=== PATIENT | female | born 1975 | race Caucasian/White ===

== ENCOUNTER 2018-11-18 09:12 | Emergency (ER) | payer OTHER ==
[~2018-11-18] VITALS: Ht 165.1 cm; Wt 89.1 kg
[2018-11-18 09:19] VITALS: Ht 165.1 cm; Wt 89.1 kg
[2018-11-18 10:07] LABS: BASOPHIL % 0.4 % (0-2); PLATELET COUNT 384 x10^3mcL (130-400); RED CELL DISTRIBUTION WIDTH 14.5 % (11.5-14.5)
[2018-11-18 10:27] LABS: CALCIUM 9.4 mg/dL (8.5-10.1); CARBON DIOXIDE 24.1 mmol/L (21-32); CREATININE SERUM 1.1 mg/dL (0.6-1.0); POTASSIUM SERUM 4.6 mmol/L (3.5-5.1)
[2018-11-18 10:31] LABS: ALBUMIN 3.5 g/dL (3.4-5.0); BILIRUBIN TOTAL 0.5 mg/dL (0.20-1.00)
[2018-11-18 10:40] LABS: TOTAL PROTEIN, SERUM 8.6 g/dL (6.4-8.2)
[2018-11-18 12:01] VITALS: BP 165/104
== END 2018-11-18 12:01 | disposition home or self-care (01) ==
LOC: ED 09:12
PROVIDERS: Emergency Medicine
DX: K29.70 Gastritis, unspecified, without bleeding (principal); L03.039 Cellulitis of unspecified toe
CPT/HCPCS: 82962; J2270; J2405; J7030; Q0092

== ENCOUNTER 2019-07-18 05:48 | Emergency (ER) | payer MEDICAID ==
[2019-07-18 05:58] VITALS: BP 147/100; Ht 165.1 cm
== END 2019-07-18 07:01 | disposition home or self-care (01) ==
LOC: ED 05:48
DX: L03.115 Cellulitis of right lower limb (principal); I10 Essential (primary) hypertension; E11.9 Type 2 diabetes mellitus without complications
CPT/HCPCS: J1885

== ENCOUNTER 2020-05-02 17:12 | Emergency (ER) | payer OTHER, SELFPAY ==
[~2020-05-02] VITALS: Ht 165.1 cm; Wt 84.4 kg
[~2020-05-02 17:12] MED LIST: AMLODIPINE BESY10 M2 PO; AUG500 PO; IBU800 M2 PO; JANUVIA100 M1 PO; LIPI10 PO; METFORMIN HCL1000 M2 PO; METOCLOPRAMIDE H5 M1 PO; PRILOSEC OTC20 M1 PO; TYLENOL WITH CO1 TA2 PO; ZESTRIL20 MG PO
[2020-05-02 17:13] VITALS: Ht 165.1 cm; Wt 84.4 kg
[2020-05-02 18:45] LABS: BASOPHIL % 0.5 % (0.2-1.3)
[2020-05-02 18:48] LABS: PLATELET COUNT 444 x10^3mcL (179-408); RED CELL DISTRIBUTION WIDTH 17.1 % (12.3-17.7)
[2020-05-02 18:50] LABS: rbc morphology (normal/abnorm) NORMAL (NORMAL)
[2020-05-02 18:55] LABS: CALCIUM 10.2 mg/dL (8.5-10.1); CARBON DIOXIDE 25.1 mmol/L (21-32); CREATININE SERUM 1.2 mg/dL (0.6-1.0); POTASSIUM SERUM 3.6 mmol/L (3.5-5.1)
[2020-05-02 19:00] LABS: BILIRUBIN TOTAL 0.7 mg/dL (0.20-1.00); TOTAL PROTEIN, SERUM 9.7 g/dL (6.4-8.2)
[2020-05-02 19:59] LABS: UA SPECIFIC GRAVITY 1.025 (1.005-1.035); microscopic required? YES; urine erythrocyte 3+ (NEGATIVE)
[2020-05-03 04:07] VITALS: BP 157/99
== END 2020-05-02 23:45 | disposition home or self-care (01) ==
LOC: ED 17:12
PROVIDERS: Emergency Medicine
DX: L02.211 Cutaneous abscess of abdominal wall (principal); I10 Essential (primary) hypertension; E11.9 Type 2 diabetes mellitus without complications; E78.00 Pure hypercholesterolemia, unspecified; Z98.890 Other specified postprocedural states; Z20.828 Contact with and (suspected) exposure to other viral communicable diseases
CPT/HCPCS: J2405; J2765; J7030; U0003

== ENCOUNTER 2020-06-11 07:28 | Emergency (ER) | payer OTHER ==
[~2020-06-11] VITALS: Ht 165.1 cm; Wt 72.6 kg
[~2020-06-11 07:28] MED LIST changes: +FLONS INH; +INSULIN SYRING1 EA29 SQ; +KEFLEX500 M1 PO; +LANTI SQ; +METFORMIN850 M1 PO; +SINGLE USE SWA1 EACH TOP; +ZYR10 PO
[2020-06-11 07:38] VITALS: Ht 165.1 cm; Wt 72.6 kg
[2020-06-11 09:14] LABS: BASOPHIL % 0.8 % (0.2-1.3); PLATELET COUNT 177 x10^3mcL (179-408)
[2020-06-11 09:40] LABS: CALCIUM 8.7 mg/dL (8.5-10.1); CARBON DIOXIDE 26.5 mmol/L (21-32); CHLORIDE SERUM 98 mmol/L (98-107); CREATININE SERUM 0.8 mg/dL (0.6-1.0); GFR1 > 60 mL/min; GLUCOSE SERUM 185 mg/dL (74-106); POTASSIUM SERUM 3.6 mmol/L (3.5-5.1); SODIUM SERUM 135 mmol/L (136-145)
[2020-06-11 09:45] LABS: ALBUMIN 3.2 g/dL (3.4-5.0); ALKALINE PHOSPHATASE 66 U/L (46-116); ALT/SGPT 17 U/L (14-59); AST/SGOT 20 U/L (15-37); BILIRUBIN TOTAL 0.5 mg/dL (0.20-1.00); LIPASE 92 IU/L (73-393); TOTAL PROTEIN, SERUM 7.6 g/dL (6.4-8.2)
[2020-06-11 10:11] LABS: RED CELL DISTRIBUTION WIDTH 15.8 % (12.3-17.7)
[2020-06-11 10:17] LABS: rbc morphology (normal/abnorm) ABNORMAL (NORMAL)
[2020-06-11 10:52] VITALS: BP 119/71
== END 2020-06-11 10:52 | disposition home or self-care (01) ==
LOC: ED 07:28
PROVIDERS: Emergency Medicine
DX: R10.13 Epigastric pain (principal); R11.10 Vomiting, unspecified; I10 Essential (primary) hypertension; E11.9 Type 2 diabetes mellitus without complications; E78.00 Pure hypercholesterolemia, unspecified
CPT/HCPCS: J1630; J7030

== ENCOUNTER 2020-07-01 07:43 | Emergency (ER) | payer OTHER ==
[~2020-07-01] VITALS: Ht 167.6 cm; Wt 73.0 kg
[2020-07-01 07:48] VITALS: Ht 167.6 cm; Wt 73.0 kg
[2020-07-01 09:54] VITALS: BP 106/78
== END 2020-07-01 09:54 | disposition home or self-care (01) ==
LOC: ED 07:43
DX: S70.02XA Contusion of left hip, initial encounter (principal); S80.02XA Contusion of left knee, initial encounter; S30.0XXA Contusion of lower back and pelvis, initial encounter; I10 Essential (primary) hypertension; E11.9 Type 2 diabetes mellitus without complications; E78.00 Pure hypercholesterolemia, unspecified; W18.30XA Fall on same level, unspecified, initial encounter; Y93.89 Activity, other specified; Y92.89 Other specified places as the place of occurrence of the external cause; Y99.8 Other external cause status

== ENCOUNTER 2020-07-15 06:54 | Emergency (ER) | payer OTHER ==
[~2020-07-15] VITALS: Ht 165.1 cm; Wt 69.4 kg
[2020-07-15 08:11] LABS: BASOPHIL % 0.9 % (0.2-1.3); RED CELL DISTRIBUTION WIDTH 15.9 % (12.3-17.7)
[2020-07-15 08:14] LABS: PLATELET COUNT 522 x10^3mcL (179-408)
[2020-07-15 08:42] LABS: CALCIUM 9.7 mg/dL (8.5-10.1); CHLORIDE SERUM 92 mmol/L (98-107); CREATININE SERUM 0.9 mg/dL (0.6-1.0); GFR1 > 60 mL/min; GLUCOSE SERUM 266 mg/dL (74-106); POTASSIUM SERUM 3.1 mmol/L (3.5-5.1); SODIUM SERUM 133 mmol/L (136-145)
[2020-07-15 08:46] LABS: ALKALINE PHOSPHATASE 116 U/L (46-116); ALT/SGPT 12 U/L (14-59); AST/SGOT 8 U/L (15-37); LIPASE 76 IU/L (73-393); TOTAL PROTEIN, SERUM 9.1 g/dL (6.4-8.2)
[2020-07-15] MEDS ORDERED: REGLAN10 M1 PO (10:28)
[2020-07-15 10:45] VITALS: BP 158/89
== END 2020-07-15 10:45 | disposition home or self-care (01) ==
LOC: ED 06:54
PROVIDERS: Emergency Medicine
DX: R11.2 Nausea with vomiting, unspecified (principal); D72.829 Elevated white blood cell count, unspecified; D47.3 Essential (hemorrhagic) thrombocythemia; E87.1 Hypo-osmolality and hyponatremia; E87.6 Hypokalemia; E11.65 Type 2 diabetes mellitus with hyperglycemia; E78.00 Pure hypercholesterolemia, unspecified
CPT/HCPCS: J2765; J7030; J7120